=== PATIENT | female | born 1965 | race Caucasian/White ===

== ENCOUNTER 2016-11-26 06:31 | Day surgery (SDC) | payer BC ==
[~2016-11-26] VITALS: Ht 157.5 cm; Wt 77.0 kg
[2016-11-26] VITALS (20 sets, daily range): BP systolic 92–111; BP diastolic 42–80; PULSE 59–70; RESP 11–25; Ht 157.5 cm; Wt 77.0 kg
[2016-11-26] MEDS ORDERED: ASPI81TA3 PO (07:43)
[2016-11-26] MEDS ORDERED: TICA90TA PO (07:43)
[2016-11-26] MEDS ORDERED: CARV25TA79 PO (07:43)
[2016-11-26] MEDS ORDERED: PANT40TA4 PO (07:43)
[2016-11-26] MEDS ORDERED: NIT4 SL (07:43)
[2016-11-26] MEDS ORDERED: ATOR40TA68 PO (07:43)
[2016-11-26 07:48] LABS: INR 1.3; PROTIME 16.3 Sec (12.2-14.2); PT RATIO 1.3
[2016-11-26 07:49] LABS: PARTIAL THROMBOPLASTIN TIME 32.6 Sec (25.0-35.0)
--- NOTE | 2016-11-26 08:01 | RADRPT ---
PROCEDURE: XR Chest. CLINICAL INDICATION: Preoperative evaluation TECHNIQUE: Single frontal chest x-ray. COMPARISON: None. FINDINGS: No acute infiltrate, pleural effusion or pneumothorax is identified. Cardiomediastinal silhouette i s within normal limits. Aortic atherosclerotic calcification is noted. The osseous structures are unremarkable. IMPRESSION: 1. No evidence of acute cardiopulmonary process. 2. Aortic atherosclerosis. RPTAT: QQ .kR Brothers MD, MD Date Time Electronically viewed and signed by .Rk Brothers MD, MD on 11/26/2016 08:01 .R/
[2016-11-26 08:03] LABS: CHOL/HDL RATIO 2.7 RATIO
[2016-11-26 08:05] LABS: BASOPHILS % 0.6 % (0.0-2.0); EOSINOPHILS # 0.3 10^3/ul (0.0-0.5); EOSINOPHILS % 3.1 % (0.0-7.0); HEMATOCRIT 40.3 % (37.0-47.0); HEMOGLOBIN 13.5 g/dl (12.0-16.0); LYMPHOCYTES # 3.4 10^3/ul (0.8-2.9); LYMPHOCYTES % 38.6 % (15.0-51.0); MEAN CORPUSCULAR HEMOGLOBIN 30.9 pg (29.0-33.0); MEAN CORPUSCULAR HGB CONC 33.4 g/dl (32.0-37.0); MEAN CORPUSCULAR VOLUME 92.3 fl (82.0-101.0); MEAN PLATELET VOLUME 9.2 fl (7.4-10.4); MONOCYTE # 1.4 10^3/ul (0.3-0.9); MONOCYTES % 15.7 % (0.0-11.0); NEUTROPHIL # 3.7 10^3/ul (1.6-7.5); PLATELET COUNT 270 10^3/UL (140-440); RED BLOOD COUNT 4.37 10^6/ul (4.20-5.40); RED CELL DISTRIBUTION WIDTH 14.8 % (11.5-14.5); UNCORRECTED WBC 8.8 10^3/ul (4.8-10.8); WHITE BLOOD COUNT 8.8 10^3/ul (4.8-10.8)
[2016-11-26 08:10] LABS: CALCIUM 8.7 mg/dl (8.4-10.2); CREATININE 0.6 mg/dl (0.44-1.00)
[2016-11-26 08:11] LABS: CONDITION 1; LH ANALYZER COMMENTS 1
[2016-11-26] MEDS ORDERED: IODIXANOL LOCM 100 ML BTL ONE (08:41)
[2016-11-26] MEDS ORDERED: LIDOCAINE 1% (MDV) 20 ML INJ ONE (08:42)
[2016-11-26] MEDS ORDERED: MIDAZOLAM 1 MG/ML 2 ML INJ ONE (08:43)
[2016-11-26] MEDS ORDERED: VERAPAMIL 5 MG INJ ONE (08:43)
[2016-11-26] MEDS ORDERED: HEPARIN 1000 UNITS/ML 10 ML INJ ONE (08:43)
[2016-11-26] MEDS ORDERED: NITROGLYCERIN (IC) 100 MCG/ML INJ ONE (08:44)
[2016-11-26] MEDS ORDERED: SOD CHLORIDE 0.9% 1,000 ML IV SCH (09:49)
[2016-11-26] MEDS ORDERED: ACETAMINOPHEN 325 MG TAB PO PRN (10:00)
[2016-11-26] MEDS ORDERED: AL HYDROX/MG HYDROX/SIMETH 30 ML CUP PO PRN (10:00)
[2016-11-26] MEDS ORDERED: ONDANSETRON 4 MG INJ IV PRN (10:00)
[2016-11-26] MEDS ORDERED: morphine 2 MG INJ IV PRN (10:00)
--- NOTE | 2016-11-26 11:50 | RADRPT ---
Vent Rate: 60 bpm RR Interval: 0 msec FL Interval: 176 msec QRS Duration: 78 msec QT Interval: 426 msec QTC Interval: 426 msec P-R-T [place]: 59 - 25 - 56 degrees Normal sinus rhythm Normal ECG Electronically Signed By: Juan Bruner [id number]
--- NOTE | 2016-11-26 14:11 | CARRPT ---
DATE OF PROCEDURE: 11/26/2016 TYPE OF PROCEDURE: 1. Left heart catheterization. 2. Coronary angiography. 3. Left ventriculogram. ATTENDING PHYSICIAN: Kathleen Ferguson MD REFERRING PHYSICIAN: Dr. Mesfin Cote INDICATION: Chest pain with positive stress test findings in a patient with a history of PTCA and s tent placement. TYPE OF ANESTHESIA: Conscious and local. BRIEF HISTORY: Ms. Rapp is a 51-year-old female with history of hypertension, dyslipidemia, cor onary artery disease, status post prior PTCA and stent placement who initially presented with compla ints of substernal chest pain. The patient underwent a cardiac stress test revealing positive ische rashid. Given these findings, the patient referred for and presents today in order to undergo left hea rt catheterization to assess for the possibility of recurrent significant obstructive coronary arter y disease leading to her symptoms of chest pain and positive stress test findings. DESCRIPTION OF PROCEDURE: After informed consent was obtained, this patient was brought to the [facility] cardiac catheterization lab where her right radial area was prepped and dr wolf in the usual sterile fashion. Lidocaine 2% was infiltrated into right radial area in order to achieve adequate local anesthesia. Using modified Seldinger technique, the right radial artery was cannulated and a 6-Beninese arterial sheath was placed. A 6-Beninese JL3.5 catheter was used to cannula te the left main coronary ostium with contrast injection. Multiple views of the left coronary arter ial system were obtained. At JL3.5 was removed over a guidewire and a JR4 was used to cannulate the right coronary arterial ostium. With contrast injection, multiple views of the right coronary herlinda rial system were obtained. JL4 was removed over a guidewire and a 6-Beninese pigtail was passed acros s the aortic valve into the left ventricle where left ventricular end-diastolic pressure was measure d. 20 mL of contrast were injected opacifying the left ventricle. The pigtail catheter was then pu lled back across the aortic valve to assess for significant gradient which there was not. Subsequen tly after completing the procedure the patient's catheters were removed. The patient's sheath was r emoved. TR band was applied. There were no noted complications. FINDINGS: 1. Coronary angiography. Right coronary artery proximally is a 3 mm vessel in its mid distal porti on has a long stented zone which is widely patent with no significant in-stent restenosis. The righ t coronary artery is dominant vessel, it gives off a 2 mm PDA and a 2 mm posterolateral branch, the posterolateral branch having a 20% stenosis. The left main is short, 4 mm, no significant focal tommy noses. The LAD proximally is a 3.5 mm vessel with 20% ostial stenosis. In the mid portion of the L AD, there is another 20% to 30% stenosis. Remainder of the LAD is free of significant focal stenose s. There is a proximal branching diagonal 2 mm vessel with no significant focal stenoses. The circ umflex proximally is a 3.5 mm vessel and has an ostial 20% stenosis. The remainder of the circ cont inuation of the AV groove is free of significant focal stenoses. There is a mid branching obtuse ma rginal 2.5 mm with no significant focal stenoses. 2. Left ventriculogram revealed a preserved left ventricular ejection fraction of 55% to 60%. Left ventricular end diastolic pressure of 17 to 19, mildly elevated. No significant aortic stenosis by gradient, 1+ mitral regurgitation. TOTAL FLUOROSCOPY TIME: 3.3 minutes. TOTAL CONTRAST: 60 mL. IMPRESSION: 1. Very mild nonobstructive coronary artery disease. 2. Widely patent right coronary artery stented zone. 3. Preserved left ventricular systolic function. 4. High to mildly elevated left heart filling pressures. 5. No significant aortic stenosis by gradient. 6. 1+ mitral regurgitation. RECOMMENDATIONS: In light of procedure and findings this time would: 1. Maximize medical management. 2. Aggressive risk factor reduction. 3. The patient will be readmitted to the same day surgery center for post catheterization observati on and continue management of symptoms with probable discharge later this afternoon. 4. The patient is scheduled for a followup appointment in our office at which time we will discuss the results of this procedure and ensure the patient has had no post catheterization complications. Dictated By: KATHLEEN WASHINGTON/DEVIN Conf#: [id number] DID#: [id number]
== END 2016-11-26 14:20 | disposition home or self-care (01) ==
LOC: MERGE 06:31 → SDS 06:31
PROVIDERS: ATTEND Internal Medicine
DX: I25.10 Atherosclerotic heart disease of native coronary artery without angina pectoris (principal); R94.39 Abnormal result of other cardiovascular function study; I10 Essential (primary) hypertension; E78.5 Hyperlipidemia, unspecified
CPT/HCPCS: 71010; 80048; 80061; 85025; 85610; 85730; 93005; 93458; C1769; C1887; J1644; J2250; Q9967; Z7610